=== PATIENT | female | born 1990 | race Caucasian/White ===

== ENCOUNTER 2024-05-24 06:46 | Inpatient (IN) ==
[2024-05-24] MEDS ORDERED: IOPAMIDOL 100 ML BOTTLE IV ONE (06:47)
[2024-05-24] MEDS: 0.9 % SODIUM CHLORIDE 1,000 ML IV ONE ×3 (07:26→17:40)
[2024-05-24] MEDS: HYDROmorphone 0.5 MG/0.5 ML SYRINGE IV ONE ×2 (07:33→12:38)
[2024-05-24] MEDS: ONDANSETRON 4 MG/2 ML VIAL IV ONE (07:33)
[2024-05-24 08:07] LABS: Basophils # (Auto) 0.01 K/mcL (0.00-0.30); Basophils % (Auto) 0.1 % (0.0-2.0); Eosinophils # (Auto) 0.05 K/mcL (0.00-0.70); Eosinophils % (Auto) 0.3 % (0.0-7.0); Hematocrit 39.9 % (34.1-44.9); Hemoglobin 12.9 g/dL (11.2-15.7); Lymphocytes # (Auto) 0.63 K/mcL (1.50-4.80); Lymphocytes % (Auto) 4.2 % (15.5-49.0); Mean Cell Volume 84.5 fL (80.0-100.0); Mean Corpuscular HGB Conc 32.3 g/dL (31.0-36.0); Mean Platelet Volume 8.8 fL (8.8-12.5); Monocytes # (Auto) 0.93 K/mcL (0.10-0.90); Monocytes % (Auto) 6.3 % (1.0-12.0); Neutrophils % (Auto) 88.9 % (38.0-78.0); Platelet Count 324 K/mcL (140-440); RBC 4.72 M/mcL (3.59-5.38); Red Cell Distribution Width 12.6 % (11.5-14.5); WBC 14.9 K/mcL (4.5-11.0)
[2024-05-24 08:28] LABS: ALT/SGPT 10 U/L (<40); AST/SGOT 18 U/L (<32); Albumin 3.5 gm/dL (3.2-5.2); Albumin/Globulin Ratio 1.3 (1.0-2.3); Alkaline Phosphatase 61 U/L (39-117); Bilirubin,Total 0.4 mg/dL (0.1-1.0); Blood Urea Nitrogen 10 mg/dL (6-20); Calcium 8.5 mg/dL (8.6-10.4); Carbon Dioxide 25 mmol/L (22-30); Chloride 98 mmol/L (96-108); Globulin 2.7 gm/dL (2.2-3.7); Glomerular Filtration Rate 82; Glucose 88 mg/dL (70-105); Potassium 3.1 mmol/L (3.3-5.1); Sodium 136 mmol/L (133-145)
[2024-05-24] MEDS: PIPERACILLIN SODIUM/TAZOBACTAM 4.5 GM in DEXTROSE 5% IN WATER 50 ML IV ONE (09:10)
[2024-05-24 09:28] LABS: Appearance,Urine Clear (Clear); Bacteria,Urine Few /hpf (0); Bilirubin,Urine Negative (Negative); Calcium Oxalate Crystals,Urine Rare /hpf; Color,Urine Yellow; Glucose,Urine (UA) Negative (Negative); Ketones,Urine Negative (Negative); Leukocyte Esterase,Urine Negative /uL (Negative); Mucus,Urine Few /hpf; Nitrate,Urine Negative (Negative); Protein,Urine Negative (Negative); Specific Gravity,Urine 1.015 (1.000-1.035); Urine Blood Trace-intact ery/mcL (Negative); Urine RBC 0 /hpf (0-3); Urine Squamous Epithelial Cell 0 /hpf (0-4); Urine WBC 0 /hpf (0-4); Urobilinogen,Urine Normal
[2024-05-24] MEDS: MIDAZOLAM 2 MG/2 ML VIAL IV ONE (11:00)
[2024-05-24] MEDS: fentaNYL 100 MCG/2 ML VIAL IV ONE (11:00)
[2024-05-24 14:54] LABS: C-Reactive Protein 6.92 mg/dL (0.03-0.80)
[2024-05-24] MEDS: PIPERACILLIN SODIUM/TAZOBACTAM 4.5 GM in DEXTROSE 5% IN WATER 100 ML IV SCH (15:22)
[2024-05-24] MEDS: POTASSIUM CHLORIDE 20 MEQ PACKET PO SCH (15:22)
[2024-05-24] MEDS ORDERED: SENNOSIDES 1 TABLET PO PRN (16:26)
[2024-05-24] MEDS: predniSONE 10 MG TABLET PO SCH (16:42)
[2024-05-24] MEDS: 0.9 % SODIUM CHLORIDE 1,000 ML IV SCH (16:42)
[2024-05-24] MEDS: DIPHENOXYLATE HCL/ATROPINE 1 TABLET PO SCH ×2 (16:42→21:05)
[2024-05-24] MEDS: ACETAMINOPHEN 325 MG TABLET PO PRN (17:00)
[2024-05-24 19:20] LABS: Potassium 3.1 mmol/L (3.3-5.1)
[2024-05-24] MEDS: SERTRALINE 100 MG TABLET PO SCH (21:05)
[2024-05-24] MEDS: busPIRone 5 MG TABLET PO SCH (21:05)
[2024-05-24] MEDS: lamoTRIgine 100 MG TABLET PO SCH (21:05)
[2024-05-24] MEDS: HEPARIN 5,000 UNIT/ML VIAL SQ SCH (21:05)
[2024-05-24] MEDS: methylPREDNISolone SOD SUCC 125 MG/2 ML VIAL IV SCH (21:11)
[2024-05-24] MEDS: 0.9 % SODIUM CHLORIDE 10 ML SYRINGE IV SCH (21:20)
[2024-05-25] MEDS: POTASSIUM CHLORIDE 20 MEQ PACKET PO ONE (00:01)
[2024-05-25] MEDS: POTASSIUM CHLORIDE 20 MEQ PACKET ONE (00:02)
[2024-05-25 06:33] LABS: Basophils # (Auto) 0 K/mcL (0.00-0.30); Basophils % (Auto) 0 % (0.0-2.0); Eosinophils # (Auto) 0.08 K/mcL (0.00-0.70); Eosinophils % (Auto) 0.7 % (0.0-7.0); Hematocrit 39.6 % (34.1-44.9); Hemoglobin 12.4 g/dL (11.2-15.7); Lymphocytes % (Auto) 2.5 % (15.5-49.0); Mean Cell Volume 88.4 fL (80.0-100.0); Mean Corpuscular HGB Conc 31.3 g/dL (31.0-36.0); Mean Platelet Volume 8.9 fL (8.8-12.5); Monocytes % (Auto) 1.7 % (1.0-12.0); Neutrophils % (Auto) 94.8 % (38.0-78.0); Platelet Count 280 K/mcL (140-440); RBC 4.48 M/mcL (3.59-5.38); Red Cell Distribution Width 12.6 % (11.5-14.5); WBC 11.9 K/mcL (4.5-11.0)
[2024-05-25 06:58] LABS: Blood Urea Nitrogen 9 mg/dL (6-20); Calcium 8.2 mg/dL (8.6-10.4); Carbon Dioxide 23 mmol/L (22-30); Chloride 106 mmol/L (96-108); Glomerular Filtration Rate 95; Glucose 151 mg/dL (70-105); Potassium 4.3 mmol/L (3.3-5.1); Sodium 141 mmol/L (133-145)
[2024-05-25] MEDS: oxyCODONE IR 5 MG TABLET PO PRN (07:53)
[2024-05-25] MEDS: ONDANSETRON 4 MG/2 ML VIAL IV PRN (07:53)
[2024-05-25] MEDS: predniSONE 20 MG TABLET PO SCH (07:53)
[2024-05-25] MEDS: CETIRIZINE 10 MG TABLET PO SCH (09:01)
[2024-05-25] MEDS: LISDEXAMFETAMINE 40 MG PO SCH (09:02)
[2024-05-25] MEDS: LIDOCAINE 4% TOP PATCH TOPICAL SCH (09:42)
[2024-05-25] MEDS ORDERED: LIDOCAINE 5% TOPICAL PRN (11:38)
[2024-05-26 06:41] LABS: Basophils # (Auto) 0 K/mcL (0.00-0.30); Basophils % (Auto) 0 % (0.0-2.0); Eosinophils # (Auto) 0.18 K/mcL (0.00-0.70); Eosinophils % (Auto) 1.5 % (0.0-7.0); Hematocrit 37.8 % (34.1-44.9); Hemoglobin 11.8 g/dL (11.2-15.7); Lymphocytes # (Auto) 0.37 K/mcL (1.50-4.80); Lymphocytes % (Auto) 3.2 % (15.5-49.0); Mean Cell Volume 88.3 fL (80.0-100.0); Mean Corpuscular HGB Conc 31.2 g/dL (31.0-36.0); Monocytes # (Auto) 0.23 K/mcL (0.10-0.90); Platelet Count 287 K/mcL (140-440); RBC 4.28 M/mcL (3.59-5.38); Red Cell Distribution Width 12.4 % (11.5-14.5); WBC 11.7 K/mcL (4.5-11.0)
[2024-05-26 06:51] LABS: ALT/SGPT 15 U/L (<40); AST/SGOT 19 U/L (<32); Albumin/Globulin Ratio 1.1 (1.0-2.3); Alkaline Phosphatase 56 U/L (39-117); Bilirubin,Direct < 0.2 mg/dL (0-0.3); Bilirubin,Total < 0.2 mg/dL (0.1-1.0); Blood Urea Nitrogen 11 mg/dL (6-20); C-Reactive Protein 8.34 mg/dL (0.03-0.80); Calcium 8.7 mg/dL (8.6-10.4); Carbon Dioxide 26 mmol/L (22-30); Chloride 104 mmol/L (96-108); Globulin 2.7 gm/dL (2.2-3.7); Glomerular Filtration Rate 112; Glucose 126 mg/dL (70-105); Lactate Dehydrogenase 138 U/L (135-225); Phosphorous 2.8 mg/dL (2.5-4.5); Potassium 4.4 mmol/L (3.3-5.1); Sodium 140 mmol/L (133-145); Triglycerides 74 mg/dL (<150); Uric Acid 1.8 mg/dL (2.5-8.0)
[2024-05-26] MEDS: LISDEXAMFETAMINE 40 MG PO SCH (09:00)
[2024-05-26] MEDS: FLU VACC TS2024-25(6MOS UP)/PF 45 MCG/0.5 ML SYRINGE IM ONE (10:04)
[2024-05-28] MEDS: predniSONE 10 MG TABLET PO SCH (08:24)
[2024-05-28] MEDS: methylPREDNISolone SOD SUCC 40 MG/ML VIAL IV SCH (09:44)
[2024-05-28 11:11] LABS: Basophils # (Auto) 0 K/mcL (0.00-0.30); Basophils % (Auto) 0 % (0.0-2.0); Eosinophils # (Auto) 0.36 K/mcL (0.00-0.70); Eosinophils % (Auto) 4.5 % (0.0-7.0); Hematocrit 39.3 % (34.1-44.9); Hemoglobin 12.2 g/dL (11.2-15.7); Lymphocytes # (Auto) 0.68 K/mcL (1.50-4.80); Lymphocytes % (Auto) 8.6 % (15.5-49.0); Mean Cell Volume 87.9 fL (80.0-100.0); Mean Platelet Volume 8.8 fL (8.8-12.5); Monocytes % (Auto) 7.6 % (1.0-12.0); Neutrophils % (Auto) 75.5 % (38.0-78.0); Platelet Count 297 K/mcL (140-440); RBC 4.47 M/mcL (3.59-5.38); Red Cell Distribution Width 12.5 % (11.5-14.5); WBC 7.9 K/mcL (4.5-11.0)
[2024-05-28 11:14] LABS: ALT/SGPT 20 U/L (<40); AST/SGOT 22 U/L (<32); Albumin/Globulin Ratio 1.3 (1.0-2.3); Alkaline Phosphatase 50 U/L (39-117); Bilirubin,Direct < 0.2 mg/dL (0-0.3); Bilirubin,Total < 0.2 mg/dL (0.1-1.0); Blood Urea Nitrogen 15 mg/dL (6-20); Calcium 8.4 mg/dL (8.6-10.4); Carbon Dioxide 28 mmol/L (22-30); Chloride 103 mmol/L (96-108); Globulin 2.4 gm/dL (2.2-3.7); Glomerular Filtration Rate 65; Glucose 102 mg/dL (70-105); Lactate Dehydrogenase 122 U/L (135-225); Phosphorous 3.8 mg/dL (2.5-4.5); Potassium 3.3 mmol/L (3.3-5.1); Sodium 141 mmol/L (133-145); Triglycerides 271 mg/dL (<150); Uric Acid 3.1 mg/dL (2.5-8.0)
[2024-05-29] MEDS: methylPREDNISolone SOD SUCC 125 MG/2 ML VIAL IV SCH (08:22)
[2024-05-30 11:21] VITALS: TEMP 98.6; O2SAT 98
== END 2024-05-30 13:00 | disposition home or self-care (01) | DRG 602 ==
LOC: ED 06:46 → ICU 16:25 → MEDSUR 05-27 14:59
PROVIDERS: ADMIT Student in an Organized Health Care Education/Training Program; ATTEND Student in an Organized Health Care Education/Training Program